=== PATIENT | female | born 1945 | race Two or more races ===

== ENCOUNTER 2018-04-25 11:31 | Emergency (ER) | payer OTHER ==
[~2018-04-25] VITALS: Ht 167.6 cm; Wt 91.8 kg
[2018-04-25] MEDS ORDERED: KETOROLAC 30 MG/1 ML ONE (13:10)
[2018-04-25 13:24] VITALS: BP 187/94
[2018-04-25] MEDS ORDERED: KETOROLAC 30 MG/1 ML IM ONE (13:30)
== END 2018-04-25 13:39 | disposition home or self-care (01) ==
LOC: ED 13:33
DX: S39.012A Strain of muscle, fascia and tendon of lower back, initial encounter (principal); I10 Essential (primary) hypertension; X58.XXXA Exposure to other specified factors, initial encounter; Y93.89 Activity, other specified; Y92.89 Other specified places as the place of occurrence of the external cause; Y99.8 Other external cause status
CPT/HCPCS: 72110; 73502; 96372; 99283; J1885

== ENCOUNTER 2018-05-05 14:17 | Emergency (ER) | payer OTHER ==
[~2018-05-05] VITALS: Ht 167.6 cm; Wt 91.0 kg
[2018-05-05 14:19] VITALS: BP 159/105
--- NOTE | 2018-05-05 14:35 | NUR ---
PT HERE FOR FALLING TO HER LEFT KNEE AT A [employer]. PT STATES HER LEFT LEG HAS BEEN "GIVING OUT " ON HER X 2. Addendum: 05/05/18 at 1440 by ASADBELA ALSO LEFT HIP PAIN SINCE March.
[2018-05-05] MEDS ORDERED: LISI-167 PO (14:40)
--- NOTE | 2018-05-05 14:52 | NUR ---
SBAR report received from RNPrema. Pt currently in imaging.
--- NOTE | 2018-05-05 16:05 | NUR ---
Patient/Caregiver given discharge instructions and they have confirmed that they understand the instructions. Patient ambulatory with steady gait.
== END 2018-05-05 16:06 | disposition home or self-care (01) ==
LOC: ED 15:55
DX: S70.02XA Contusion of left hip, initial encounter (principal); S80.02XA Contusion of left knee, initial encounter; I10 Essential (primary) hypertension; W18.30XA Fall on same level, unspecified, initial encounter; Y93.89 Activity, other specified; Y92.524 Gas station as the place of occurrence of the external cause; Y99.8 Other external cause status
CPT/HCPCS: 99283

== ENCOUNTER → 2018-05-21 | Outpatient (CLI) | payer OTHER ==
[~2018-05-21] MED LIST: LISI-167 PO
== END | disposition home or self-care (01) ==
LOC: RAD 09:37
PROVIDERS: ATTEND Family Medicine
DX: M47.816 Spondylosis without myelopathy or radiculopathy, lumbar region (principal); M51.26 Other intervertebral disc displacement, lumbar region; M48.061 Spinal stenosis, lumbar region without neurogenic claudication; M12.88 Other specific arthropathies, not elsewhere classified, other specified site
CPT/HCPCS: 72148

== ENCOUNTER → 2018-06-20 | Outpatient (CLI) | payer OTHER | END | disposition home or self-care (01) | LOC: CFH 08:49 | PROVIDERS: ATTEND Family Medicine | DX: K40.90 Unilateral inguinal hernia, without obstruction or gangrene, not specified as recurrent (principal) | CPT/HCPCS: 76857 ==